=== PATIENT | male | born 1960 | race Two or more races ===

== ENCOUNTER 2023-08-04 22:37 | Emergency (ER) | payer OTHER ==
[~2023-08-04] VITALS: Ht 180.3 cm; Wt 88.5 kg
[2023-08-04] MEDS ORDERED: GLUMETZA1000 MG PO (22:49)
[2023-08-05] MEDS ORDERED: TETANUS & DIPHTHERIA TOX,ADULT 0.5 ML VIAL IM STA (00:59)
[2023-08-05] MEDS ORDERED: DUI500 PO (01:15)
== END 2023-08-05 01:18 ==
LOC: ER 22:37
DX: S01.81XA Laceration without foreign body of other part of head, initial encounter (principal); W19.XXXA Unspecified fall, initial encounter; Y93.89 Activity, other specified; Y92.59 Other trade areas as the place of occurrence of the external cause; Y99.8 Other external cause status; E11.9 Type 2 diabetes mellitus without complications; Z79.84 Long term (current) use of oral hypoglycemic drugs